=== PATIENT | female | born 1970 | race Caucasian/White ===

== ENCOUNTER → 2018-12-21 10:34 | Outpatient (CLI) | payer BC, SELFPAY ==
--- NOTE | 2018-12-21 10:44 | CT_ITS ---
PROCEDURE: CT HEAD/BRAIN WO/W CON CLINICAL HISTORY: DIZZINESS, BLURRED VISION, IMBALANCE,HX HEAD INJURY COMPARISON: No exams were available for comparison TECHNIQUE: Pre and postcontrast CT head. 100 cc Optiray 300 hand injected Axial images obtained with sagittal and coronal reformats. All CT scans at the facility use one or more dose reduction, viz: automated exposure control, ma/kV adjustment per patient size (including targeted exams where dose is matched to indication, i.e. head), or iterative reconstruction technique. FINDINGS: No acute intracranial findings.. No hemorrhage. No subdural nor extra-axial collections. No mass effect.. But no prominent findings There is small near 5 mm area minimal enhancement overlying posterior right parietal-occipital region in most likely enhancing dural vein associated with of parietal thinning or Pacchionian /arachnoid granulation but but would suggest follow-up MRI of the brain pre and post contrast to further evaluate and and better exclude early peripheral or or dural-based lesion period Vessels at [id number] as are grossly unremarkable on this standard survey CT head. Also normal enhancement of dural venous sinuses on this study Ventricles and basal cisterns appear clear, normal size ventricles. The visualized portions of the paranasal sinuses are clear. Only top the maxillary sinuses visualized on axial CT images, but maxillary sinuses appear clear on the CT farm crew member view patient has small clear hypoplastic frontal sinuses. Posterior fossa is unremarkable. The CP angles clear unremarkable. IAC's symmetrical. Mastoid air cells well developing clear been no mastoid effusion. Middle ear clear. IMPRESSION: No acute findings. No mass effect. No prominent findings small less than 5 mm area of enhancement, overlying the right parietal-occipital region. Suspect may be merely focally prominent enhancing dural vein but it does clearly enhance and standout,. Because of this I would suggest a follow-up MR brain with and without contrast to further evaluate. Dictated by: Marcos Hale MD 12/21/2018 17:07 Signed by: <Electronically signed by Marcos Hale MD in [facility]> 12/22/2018 08:36
== END ==
PROVIDERS: PCP Physician Assistant; Visit Provider Physician Assistant
DX: R42 Dizziness and giddiness (principal); H53.8 Other visual disturbances; R26.89 Other abnormalities of gait and mobility; H54.7 Unspecified visual loss; R25.1 Tremor, unspecified; Z87.828 Personal history of other (healed) physical injury and trauma
CPT/HCPCS: 70470; Q9967

== ENCOUNTER → 2019-01-02 09:02 | Outpatient (CLI) | payer BC, SELFPAY ==
--- NOTE | 2019-01-02 09:05 | MR_ITS ---
PROCEDURE: MR HEAD/BRAIN WO/W CON CLINICAL INDICATION: ABNORMAL CT OF BRAIN Dizziness following injury, unsteady gait, follow-up abnormal CT head COMPARISON: CT HEAD/BRAIN WO/W CON from 12/21/2018 TECHNIQUE: Routine multiplanar multi echo sequences are performed without and with gadolinium enhancement FINDINGS: No midline shift, mass effect, intracranial hemorrhage, or hydrocephalus. Cerebellopontine angles, cerebellum, and brainstem are unremarkable. There are scant periventricular and subcortical T2 white matter hyperintensities nonspecific. These do not demonstrate restricted diffusion. There is 1 small area of subcortical white matter hyperintensity in the right parietal lobe at the denney radiata. There appears to be some minimal enhancement at this region. This measures approximately 4 mm. No restricted diffusion. This is of questionable clinical significance and follow-up is suggested. No other areas of enhancement are apparent On the CT scan, there was a questionable 5 mm area of enhancement overlying the right parietal occipital region. This is felt represent a cortical vein with partial volume averaging artifact. No intra or extra-axial lesion evident at this area. The pituitary, corpus callosum, optic chiasm, and craniocervical junction have an unremarkable appearance. No mastoid effusion or sinus air-fluid level. IMPRESSION: 1. No definite acute intracranial findings 2. Abnormality on the CT scan is felt to have been due to partial volume averaging from a cortical vein. No definite intra or extra-axial lesion evident at this area 3. There are scattered small T2 white matter hyperintensities. One of these areas show some minimal enhancement in the right parietal lobe. This is of questionable clinical significance. Suggest short-term follow-up in 3 months without and with gadolinium enhancement to confirm short term stability. Dictated by: Wilman Sher MD 01/04/2019 06:28 Signed by: <Electronically signed by Wilman Sher MD in [facility]> 01/04/2019 06:28
--- NOTE | 2019-01-02 10:28 | XR_ITS ---
PROCEDURE: XR CERVICAL SPINE 3V CLINICAL INDICATION: NECK PAIN COMPARISON: No exams were available for comparison FINDINGS: There is normal alignment. No acute fracture or dislocation is evident. There is a vertical lucency through the transverse process on the left at T1 consistent with either an old injury or an ununited ossification center IMPRESSION: Negative cervical spine Old fracture versus ununited ossification center of the transverse process on the left at T1 Dictated by: Wilman Sher MD 01/02/2019 17:01 Signed by: <Electronically signed by Wilman Sher MD in [facility]> 01/02/2019 17:01
== END ==
PROVIDERS: PCP Physician Assistant; Visit Provider Physician Assistant
DX: R90.89 Other abnormal findings on diagnostic imaging of central nervous system (principal); M54.2 Cervicalgia
CPT/HCPCS: 70553; 72040; A9576